=== PATIENT | female | born 1940 | race Caucasian/White ===

== ENCOUNTER 2016-04-03 | Outpatient (CLI) | payer MEDICARE, OTHER | END 2016-04-03 15:27 | disposition critical access hospital (66) | CPT/HCPCS: A0425; A0429 ==

== ENCOUNTER 2016-04-03 15:36 | Emergency (ER) | payer MEDICARE, OTHER ==
[2016-04-03] MEDS ORDERED: SODIUM CHLORIDE 0.9% 1,000 ML IV ONE (15:40)
[2016-04-03] MEDS ORDERED: ONDANSETRON 4 MG/2 ML VIAL IVP STA (15:40)
[2016-04-03] MEDS ORDERED: ONDANSETRON 4 MG/2 ML VIAL ONE (15:45)
== END 2016-04-03 19:13 | disposition home or self-care (01) ==
DX: F41.9 Anxiety disorder, unspecified (principal); R53.1 Weakness; D72.829 Elevated white blood cell count, unspecified; I45.10 Unspecified right bundle-branch block; E03.9 Hypothyroidism, unspecified

== ENCOUNTER 2016-04-07 11:59 | Outpatient (CLI) | payer MEDICARE, OTHER | END 2016-04-07 12:00 | disposition home or self-care (01) | DX: E83.119 Hemochromatosis, unspecified (principal) ==

== ENCOUNTER 2016-11-11 08:37 | Outpatient (CLI) | payer MEDICARE, OTHER ==
--- NOTE | 2016-11-11 10:06 | Ultrasound Report ---
LIVER ULTRASOUND: 11/11/2016 CLINICAL INDICATION: Hemachromatosis. TECHNIQUE: Real-time scanning was performed with clearance representative static images obtained. FINDINGS: The liver measures 13.5 cm. Hepatic echotexture is normal. No intrahepatic biliary dilat ation or focal parenchymal lesion is present. The common bile duct measures 2 mm. The gallbladder d emonstrates two tiny polyps or foci of adherent tumefactive sludge, the larger measuring 2 mm, and th e smaller measuring 1 mm. No cholelithiasis, wall thickening, or pericholecystic fluid is present. IMPRESSION: NORMAL APPEARANCE OF THE LIVER. TINY GALLBLADDER WALL POLYPS OR FOCI OF ADHERENT TUMEFA CTIVE SLUDGE. NO EVIDENCE OF CHOLELITHIASIS OR BILIARY OBSTRUCTION. JOB #: [id number] EXT JOB #:[id number]
== END 2016-11-11 08:38 | disposition home or self-care (01) ==
LOC: DI 08:37
PROVIDERS: ATTEND Internal Medicine
DX: E83.119 Hemochromatosis, unspecified (principal)
CPT/HCPCS: 76705

== ENCOUNTER 2018-03-10 09:24 | Outpatient (CLI) | payer MEDICARE, OTHER | END 2018-03-10 09:25 | disposition home or self-care (01) | LOC: LAB 09:24 | PROVIDERS: ATTEND Internal Medicine | DX: E83.119 Hemochromatosis, unspecified (principal) | CPT/HCPCS: 36415; 82728 ==

== ENCOUNTER 2021-10-11 15:20 | Outpatient (CLI) | payer MEDICARE, OTHER | END 2021-10-11 15:21 | disposition critical access hospital (66) | LOC: EMS 15:20 | DX: T14.90XA Injury, unspecified, initial encounter (principal); W01.0XXA Fall on same level from slipping, tripping and stumbling without subsequent striking against object, initial encounter; Y93.01 Activity, walking, marching and hiking; Y92.008 Other place in unspecified non-institutional (private) residence as the place of occurrence of the external cause | CPT/HCPCS: A0425; A0429 ==

== ENCOUNTER 2021-10-11 15:31 | Emergency (ER) | payer MEDICARE, OTHER ==
[2021-10-11] MEDS ORDERED: SODIUM CHLORIDE 0.9% 1,000 ML IV STA (15:59)
[2021-10-11] MEDS ORDERED: HYDROmorphone 1 MG/ML CARPUJECT IVP STA (15:59)
--- NOTE | 2021-10-11 16:03 | ED Physician Documentation ---
History of Present Illness - Stated complaint Stated Complaint: GLF - Chief complaint Chief Complaint: Trauma Ext - Additonal information Additional information: 81-year-old female presents emergency department for evaluation of injuries aft er a fall. She was descending some steps and fell forward onto her left side. She had difficulty getting up but once EMS was summoned she was able to walk to the [facility]. She presents with significant pain on her left thigh as well as ecchymosis. She has pain with palpation of her sternum she also has significant bruising on the left side of her face. She is not anticoagulated and did not lose consciousness. Review of Systems Constitutional: denies: Fever, Chills Cardiac: reports: Reviewed and negative Respiratory: denies: Dyspnea, Cough GI: denies: Abdominal Pain : reports: Reviewed and negative Skin: reports: Abrasion (s) Musculoskeletal: denies: Back pain Neurologic: reports: Generalized weakness PD PAST MEDICAL HISTORY - Past Medical History Cardiovascular: Arrhythmia Endocrine/Autoimmune: HyPOthyroidism Psych: Anxiety - Past Surgical History HEENT: Tonsil/Adenoidectomy - Present Medications Home Medications: Ambulatory Orders Medication Instructions Recorded Confirmed Levothyroxine Sodium [Synthroid] 75 mcg PO DAILY 07/18/12 10/11/21 - Allergies Allergies/Adverse Reactions: Allergies Allergy/AdvReac Type Severity Reaction Status Date / Time lidocaine Allergy Intermediate Anxiety Verified 10/11/21 15:56 bacitracin AdvReac Intermediate Rash Verified 10/11/21 15:56 [From Neosporin ([id number])] bacitracin zinc * AdvReac Intermediate Rash Verified 10/11/21 15:56 [From Neosporin ([id number])] neomycin sulfate * AdvReac Intermediate Rash Verified 10/11/21 15:56 [From Neosporin ([id number])] polymyxin B AdvReac Intermediate Rash Verified 10/11/21 15:56 [From Neosporin ([id number])] cephalexin [Cephalexin] AdvReac Unknown Anxiety Verified 10/11/21 15:56 Sulfa (Sulfonamide AdvReac Unknown Nausea Verified 10/11/21 15:56 Antibiotics) - Social History Does the pt smoke?: No Smoking Status: Never smoker PD ED PE EXPANDED - General General: Alert, No acute distress - HEENT HEENT: Pharynx normal, Other (Bruising on the left side of the face and at the angle of the left mandible. No trismus. No malocclusion. No intraoral bleeding noted. Normal phonation.) - Neck Neck: Supple w/out meningeal sx. No: Adenopathy, Bony TTP, Limited ROM - Cardiac Cardiac: Regular Rate, Radial strong equal, Pedal strong equal, Cap refill < 2 sec, Chest wall TTP (Significant tenderness to palpation of the sternum with even mild pressure. No deformity crepitus or ecchymosis noted). No: Murmur Present - Respiratory Respiratory: Clear to ausultation duy. No: Distress, Labored - Abdomen Abdomen: Normal Bowel sounds. No: Tender to palpation - Back Back: No: Vertebral tenderness (No step-off crepitus or deformity with palpation of the cervical thoracic or lumbar spine) - Derm Derm: Bruising (Significant bruising of the left side of the face right forearm left thigh) - Extremities Extremities: Left thigh (Patient is able to bend and extend left leg at hip and knee. Reportedly was able to bear weight. She has a large bruise of the left medial thigh which is quite tender to touch) - Neuro Neuro: Alert and Oriented X 3, CNII-XII intact - GCS Eye Opening: Spontaneous Motor: Obeys Commands Verbal: Oriented Total: 15 Results - Vitals Vitals: Vital Signs - 24 hr 10/11/21 10/11/21 15:37 17:21 Temperature 36.6 C Heart Rate 80 81 Respiratory 16 18 Rate Blood Pressure 139/85 H 171/82 H O2 Saturation 99 98 Oxygen O2 Source Room air - Labs Labs: Laboratory Tests 10/11/21 10/11/21 10/11/21 16:40 16:40 16:40 WBC 6.8 RBC 3.81 L Hgb 12.1 Hct 37.3 MCV 97.9 MCH 31.8 H MCHC 32.4 RDW 12.3 Plt Count 161 MPV 10.9 H Neut # (Auto) 5.2 Lymph # (Auto) 0.9 L [place] # (Auto) 0.7 Eos # (Auto) 0.1 Baso # (Auto) 0.0 Absolute Nucleated RBC 0.00 Nucleated RBC % 0.0 PT 10.0 INR 0.9 Sodium 137 Potassium 3.9 Chloride 103 Carbon Dioxide 29 Anion Gap 5.0 L BUN 21 H Creatinine 0.7 Estimated GFR (MDRD) 81 L Glucose 104 H Calcium 9.1 - Rads (name of study) CT chest Radiology: Final report received (No visualized sternal or rib fractures. No vertebral body compression fractures. No pneumothorax. No acute airspace opacities) cervical ct Radiology: Final report received (No acute traumatic fractures) ct head Radiology: Final report received (No acute intracranial process. Moderate atrophy and chronic microvascular ischemic changes) ct max fac Radiology: Final report received (No visualized fractures. Left facial soft tissue edema with small hematoma) left femur/left hip and pelvis Radiology: Final report received (No visualized fracture or dislocation) PD MEDICAL DECISION MAKING - ED course Complexity details: reviewed results, re-evaluated patient, considered differential, d/w patient ED course: 81-year-old female presents emergency department for evaluation of left-sided facial trauma, sternal pain and left thigh pain after she fell down 1 stair onto her left side. She did not lose consciousness and had difficulty getting up. However when she was attended to by EMS she was able to stand up and walk to the [facility]. On presentation she has a moderate amount of ecchymosis and swelling to the left side of her jaw. No trismus. She was also exquisitely tender with even light palpation of the sternum and anterior chest. She has a very large hematoma of the left thigh. No pain was elicited with palpation of the cervical thoracic or lumbar spine. She has full range of motion of both hips without any pain elicited. We We did do extensive imaging of the head neck chest and femur without findings of acute fracture. Patient declined IV or narcotic analgesics. She was given ibuprofen per her request here in the ER. After repeat evaluation she was able to ambulate with minimal assistance with the ED staff. At this time patient is stable for discharge home. She has declined a prescription for analgesia. She is advised to use Tylenol or limited amount of ibuprofen [id number] for discomfort. Emergent return precautions were discussed. Departure - Departure Disposition: 01 Home, Self Care Clinical Impression: Chest wall pain Fall Qualifiers: Encounter type: initial encounter Qualified Code(s): W19.XXXA - Unspecified fall, initial encounter Hematoma of left thigh Qualifiers: Encounter type: initial encounter Qualified Code(s): S70.12XA - Contusion of left thigh, initial encounter Abrasion of right forearm Qualifiers: Encounter type: initial encounter Qualified Code(s): S50.811A - Abrasion of right forearm, initial encounter Condition: Stable Record reviewed to determine appropriate education?: Yes Instructions: ED Hematoma, ED Contusion Chest Wall Comments: You are seen today in the emergency department After fall down some stairs. You do have a very large bruise on the left side of your face as well as your thigh and right forearm. You are very tender with even light palpation of your chest wall. We did do CT imaging of your head, neck, face and chest. We do not see any broken bones. The x-rays of your hip and pelvis And left femur are are also normal. I expect that you will be very sore over the next few days. I do recommend that you take 500 mg of Tylenol 2-3 times a day or alternate with ibuprofen 600 mg 2-3 times a day. In general you should be starting to feel better after about 72 hours. Continue to be as active and is mobile as possible. The hematoma on your left thigh will likely take 2 to 3 weeks to resolve. At any point you have worsening symptoms, difficulty breathing or develop fevers then please return to the ER for second evaluation
--- NOTE | 2021-10-11 16:39 | CT Report ---
PROCEDURE: HEAD WO INDICATIONS: glf TECHNIQUE: Noncontrast 4.5 mm thick angled axial sections acquired from the foramen magnum to the vertex. For r adiation dose reduction, the following was used: automated exposure control, adjustment of mA and/or kV according to patient size. COMPARISON: CT cervical spine and maxillofacial 422 FINDINGS: Image quality: Excellent. The ventricular system and cortical sulci demonstrate atrophy, consistent for patient's stated age. There are areas of hypodensity in the periventricular and subcortical white matter. There is no acut e intra or extra-axial fluid collection. No acute hemorrhage, mass lesion or midline shift. Brainst em is unremarkable. Globes are symmetrical. Sinuses are aerated. Osseous structures are intact. IMPRESSION: 1. No acute intracranial process. 2. Moderate atrophy and chronic microvascular ischemic changes. Reviewed by: Kiara Paredes MD on 10/11/2021 4:38 PM PDT Approved by: Kiara Paredes MD on 10/11/2021 4:38 PM PDT Station ID: [id number]
--- NOTE | 2021-10-11 16:41 | CT Report ---
PROCEDURE: CERVICAL SPINE WO INDICATIONS: glf TECHNIQUE: Noncontrast 3 mm thick sections acquired from the skull base to the T4 level. Sagittal and coronal r eformats were then constructed. For radiation dose reduction, the following was used: automated exp osure control, adjustment of mA and/or kV according to patient size. COMPARISON: CT brain and maxillofacial 10/11/2021 FINDINGS: Image quality: Excellent. Bones: No fractures or dislocations. Visualized superior ribs are intact. Multilevel degenerative changes are present. Soft tissues: Prevertebral soft tissues are normal in thickness. No paravertebral hematomas. No ap ical pneumothoraces. IMPRESSION: No visualized fracture. Reviewed by: Kiara Paredes MD on 10/11/2021 4:40 PM PDT Approved by: Kiara Paredes MD on 10/11/2021 4:40 PM PDT Station ID: [id number]
--- NOTE | 2021-10-11 16:42 | CT Report ---
PROCEDURE: MAXILLOFACIAL WO INDICATIONS: jaw swelling after fall TECHNIQUE: Noncontrast 1.5 mm thick axial images acquired from the mandible through the frontal sinuses, with co brigid and sagittal reformatting. For radiation dose reduction, the following was used: automated ex posure control, adjustment of mA and/or kV according to patient size. COMPARISON: CT brain and cervical spine 10/11/2021. FINDINGS: Image quality: Excellent. Bones and teeth: Orbital ji are intact. Sinus ji show no fracture or deformity. Nasal bones and septum are intact. Visualized portions of the mandible demonstrate no fractures or subluxation. Zygomatic arches are intact. Pterygoid plates are intact. Visualized portions of the skull base an d auditory canals are intact. Sinuses: Paranasal sinuses are aerated, without fluid levels, mucosal thickening, or mucoceles. Mas toid air cells are aerated. Soft tissues: Prominent left facial soft tissue edema is present. There is a soft tissue density zuleyka uring 2.8 x 1.4 cm, Hounsfield units measuring 54. Vascular: Visualized vascular structures appear normal in the absence of contrast. Bony vascular fo ramina and canals are intact. IMPRESSION: No visualized fracture. Left facial soft tissue edema with small hematoma. Reviewed by: Kiara Paredes MD on 10/11/2021 4:41 PM PDT Approved by: Kiara Paredes MD on 10/11/2021 4:41 PM PDT Station ID: [id number]
--- NOTE | 2021-10-11 16:45 | CT Report ---
PROCEDURE: CHEST WO INDICATIONS: sternal pain after fall TECHNIQUE: Noncontrast 1mm axial images were acquired from the pulmonary apices to the posterior costophrenic an gles. Axial 5 mm soft tissue kernel reconstructions were performed as well as 8 mm axial MIP and cor onal and sagittal 5 mm reformations. For radiation dose reduction, the following was used: automate d exposure control, adjustment of mA and/or kV according to patient size. COMPARISON: None FINDINGS: Image quality: Excellent. Lungs and pleura: No acute air space opacities. No pleural effusions or pneumothorax. Central and peripheral airways are patent and normal in caliber. Emphysematous changes are present within the paul ngs. Mediastinum: Heart size is enlarged. No pericardial effusion. No mediastinal adenopathy by size cri teria. Thoracic aorta and central pulmonary arteries are normal in size. Esophagus is normal in jessica iber. No hiatal hernia. Bones and chest wall: No suspicious bony lesions. No vertebral body compression fractures. No axil supriya or supraclavicular adenopathy by size criteria. The thyroid is normal in size and there are no incidental findings. Abdomen: Visualized upper abdominal solid organs and bowel loops appear normal in the absence of con trast. IMPRESSION: No visualized sternal fracture. CLINICAL RECOMMENDATION STATEMENTS: In patients <35 years with an ITN detected on CT, MRI, or extrathyroidal ultrasound, the Committee re commends further evaluation with dedicated thyroid ultrasound if the nodule is "e1 cm and has no susp icious imaging features, and if the patient has normal life expectancy. In patients "e35 years with an ITN detected on CT, MRI, or extrathyroidal ultrasound, the Committee r ecommends further evaluation with dedicated thyroid ultrasound if the nodule is "e1.5 cm and has no s uspicious imaging features, and if the patient has normal life expectancy. (ACR, 2014) Reviewed by: Kiara Paredes MD on 10/11/2021 4:44 PM PDT Approved by: Kiara Paredes MD on 10/11/2021 4:44 PM PDT Station ID: [id number]
[2021-10-11 16:46] LABS: BASOPHILS % (AUTO) 0.3 %; EOSINOPHILS # (AUTO) 0.1 10^3/uL (0.0-0.7); HCT - HEMATOCRIT 37.3 % (37.0-47.0); HGB - HEMOGLOBIN 12.1 g/dL (12.0-16.0); LYMPHOCYTES # (AUTO) 0.9 10^3/uL (1.5-3.5); LYMPHOCYTES % (AUTO) 12.5 %; MEAN CORPUSCULAR HEMOGLOBIN 31.8 pg (27.0-31.0); MEAN CORPUSCULAR HGB CONC 32.4 g/dL (32.0-36.0); MEAN CORPUSCULAR VOLUME 97.9 fL (81.0-99.0); MEAN PLATELET VOLUME 10.9 fL (7.9-10.8); MONOCYTES # (AUTO) 0.7 10^3/uL (0.0-1.0); NEUTROPHILS # (AUTO) 5.2 10^3/uL (1.5-6.6); NEUTROPHILS % (AUTO) 75.9 %; PLT - PLATELET COUNT 161 10^3/uL (130-450); RED BLOOD COUNT 3.81 10^6/uL (4.20-5.40); RED CELL DISTRIBUTION WIDTH 12.3 % (12.0-15.0); WHITE BLOOD COUNT 6.8 x10^3/uL (4.8-10.8)
--- NOTE | 2021-10-11 16:46 | XRAY Report ---
PROCEDURE: Femur 2V LT INDICATIONS: fall pain TECHNIQUE: 2 views of the femur were acquired. COMPARISON: None. FINDINGS: Bones: No fractures or dislocations. No suspicious bony lesions. Severe arthritic changes are pres ent within the knee. Chondrocalcinosis is also present. Soft tissues: No suspicious soft tissue calcifications or masses. IMPRESSION: No visualized acute fracture or dislocation. However, occult injury cannot be excluded. Recommend rodney rt interval imaging follow-up in 7-10 days as clinically indicated for additional evaluation. Reviewed by: Kiara Paredes MD on 10/11/2021 4:45 PM PDT Approved by: Kiara Paredes MD on 10/11/2021 4:45 PM PDT Station ID: [id number]
--- NOTE | 2021-10-11 16:47 | XRAY Report ---
PROCEDURE: Hip w/Pelvis 2-3V LT INDICATIONS: pain after fall TECHNIQUE: AP pelvis with lateral view(s) of the left hip(s). COMPARISON: None. FINDINGS: Bones: No fractures or dislocations. Pelvic ring appears intact. No suspicious bony lesions. Mode rate arthritic narrowing is present within the hips bilaterally. Soft tissues: The visualized bowel gas pattern is normal. No suspicious soft tissue calcifications. IMPRESSION: No visualized acute fracture or dislocation. However, occult injury cannot be excluded. Recommend short interval imaging follow-up in 7-10 days as clinically indicated for additional evalua tion. Reviewed by: Kiara Paredes MD on 10/11/2021 4:45 PM PDT Approved by: Kiara Paredes MD on 10/11/2021 4:45 PM PDT Station ID: [id number]
[2021-10-11 16:52] LABS: INR 0.9 (0.8-1.2)
[2021-10-11 16:55] LABS: CALCIUM 9.1 mg/dL (8.5-10.3); CREATININE 0.7 mg/dL (0.4-1.0); POTASSIUM 3.9 mmol/L (3.5-5.0)
[2021-10-11] MEDS ORDERED: IBUPROFEN 600 MG TABLET PO STA (16:55)
[2021-10-11 17:21] VITALS: BP 171/82
== END 2021-10-11 17:51 | disposition home or self-care (01) ==
LOC: EDUNIT# → ED 15:31
DX: R07.89 Other chest pain (principal); S70.12XA Contusion of left thigh, initial encounter; S50.811A Abrasion of right forearm, initial encounter; S00.83XA Contusion of other part of head, initial encounter; W10.9XXA Fall (on) (from) unspecified stairs and steps, initial encounter; Y93.89 Activity, other specified
CPT/HCPCS: 36415; 70450; 70486; 71250; 72125; 73502; 73552; 80048; 85025; 85610; 99282; 99284; A9270

== ENCOUNTER 2021-12-14 08:00 | Outpatient (CLI) | payer MEDICARE, OTHER ==
[2021-12-14 18:49] LABS: BASOPHILS % (AUTO) 0.7 %; EOSINOPHILS % (AUTO) 0.7 %; HCT - HEMATOCRIT 42.3 % (37.0-47.0); HGB - HEMOGLOBIN 13.4 g/dL (12.0-16.0); LYMPHOCYTES # (AUTO) 1.3 10^3/uL (1.5-3.5); LYMPHOCYTES % (AUTO) 21.8 %; MEAN CORPUSCULAR HEMOGLOBIN 30.2 pg (27.0-31.0); MEAN CORPUSCULAR HGB CONC 31.7 g/dL (32.0-36.0); MEAN CORPUSCULAR VOLUME 95.5 fL (81.0-99.0); MEAN PLATELET VOLUME 12.1 fL (7.9-10.8); MONOCYTES # (AUTO) 0.7 10^3/uL (0.0-1.0); MONOCYTES % (AUTO) 10.8 %; NEUTROPHILS % (AUTO) 65.8 %; PLT - PLATELET COUNT 193 10^3/uL (130-450); RED BLOOD COUNT 4.43 10^6/uL (4.20-5.40); RED CELL DISTRIBUTION WIDTH 13.5 % (12.0-15.0); WHITE BLOOD COUNT 6.1 x10^3/uL (4.8-10.8)
[2021-12-14 19:51] LABS: THYROID STIMULATING HORMONE 2.33 uIU/mL (0.34-5.60)
[2021-12-14 19:55] LABS: % IRON SATURATION 20 % (20-50); ALBUMIN 3.6 g/dL (3.2-5.5); ALBUMIN/GLOBULIN RATIO 0.9 (1.0-2.2); ALKALINE PHOSPHATASE 94 IU/L (42-121); ALT ALANINE AMINOTRANSFERASE 18 IU/L (10-60); AST ASPARTATE AMINOTRANSFERASE 77 IU/L (10-42); BILIRUBIN,TOTAL 0.8 mg/dL (0.2-1.0); BUN - BLOOD UREA NITROGEN 19 mg/dL (6-20); CALCIUM 9.2 mg/dL (8.5-10.3); CARBON DIOXIDE - CO2 27 mmol/L (21-32); CHLORIDE 102 mmol/L (101-111); CHOL/HDL RATIO 2.3 (<4.4); CHOLESTEROL 180 mg/dL; CREATININE 0.6 mg/dL (0.4-1.0); GFR - MDRD 96 (>89); GLUCOSE 90 mg/dL (70-100); HDL CHOLESTEROL 79 mg/dL; IRON 102 ug/dL (28-170); LDL CHOLESTEROL,CALCULATED 90 mg/dL; LDL/HDL RATIO 1.1 (<4.4); SODIUM 139 mmol/L (135-145); TOTAL IRON BINDING CAPACITY 510 ug/dL (250-450); TOTAL PROTEIN 7.7 g/dL (6.7-8.2); TRANSFERRIN 364 mg/dL (192-382); TRIGLYCERIDES 53 mg/dL; VLDL CHOLESTEROL 11 mg/dL
[2021-12-14 20:22] LABS: ESTIMATED AVERAGE GLUCOSE 128 mg/dL (70-100); HEMOGLOBIN A1c% 6.1 % (4.27-6.07)
== END 2021-12-14 23:59 | disposition home or self-care (01) ==
LOC: LAB.R 08:00
PROVIDERS: ATTEND Internal Medicine
DX: Z00.00 Encounter for general adult medical examination without abnormal findings (principal); F41.9 Anxiety disorder, unspecified; C44.91 Basal cell carcinoma of skin, unspecified; E83.110 Hereditary hemochromatosis; Z86.79 Personal history of other diseases of the circulatory system; E03.9 Hypothyroidism, unspecified; R73.01 Impaired fasting glucose; G47.00 Insomnia, unspecified; I83.90 Asymptomatic varicose veins of unspecified lower extremity
CPT/HCPCS: 80053; 80061; 82728; 83036; 83540; 83721; 84443; 84466; 85025

== ENCOUNTER 2022-01-01 09:22 | Outpatient (CLI) | payer MEDICARE, OTHER ==
--- NOTE | 2022-01-01 13:27 | Ultrasound Report ---
PROCEDURE: Abdomen Limited INDICATIONS: ELEVATED LIVER ENZYMES TECHNIQUE: Real-time scanning was performed of the right upper quadrant, with image documentation. COMPARISON: CT chest 10/11/2021. Abdominal ultrasound 11/11/2016. FINDINGS: Liver: Liver is normal in size and homogeneous in echotexture. Main portal vein demonstrates that a pedal flow. Diameter measuring 1.2 cm. Systolic velocity 23 cm/s. Phasicity is present. Gallbladder: Gallbladder is nondistended. No stones or sludge. No polyps seen. No gallbladder wall th ickening. No pericholecystic fluid. Negative sonographic Joseph sign. Biliary ducts: Intrahepatic bile ducts are non-dilated. Extrahepatic bile duct caliber measures 2 m m. Normal is 6-7 mm or less in diameter, or 10 mm or less post-cholecystectomy. Pancreas: Visualized portions of the pancreas are sonographically normal. Suboptimal visualization. Right kidney: Measures 9.2 cm. Cortex 0.6 cm. No hydronephrosis. IMPRESSION: 1. No acute cholecystitis. No gallstones. No polyp is identified. 2. Sonographic appearance of the liver is within normal limits. Reviewed by: Parminder Sauceda MD on 01/01/2022 1:25 PM PST Approved by: Parminder Sauceda MD on 01/01/2022 1:25 PM PST Station ID: [id number]
== END 2022-01-01 09:23 | disposition home or self-care (01) ==
LOC: DI 09:22
PROVIDERS: ATTEND Internal Medicine
DX: R74.8 Abnormal levels of other serum enzymes (principal)

== ENCOUNTER 2022-02-11 10:35 | Emergency (ER) | payer MEDICARE, OTHER ==
[2022-02-11] MEDS ORDERED: BUFFERED LIDOCAINE 10 ML SYRINGE SUBQ STA (10:51)
[2022-02-11 10:57] VITALS: BP 121/79
--- NOTE | 2022-02-11 12:23 | ED Physician Documentation ---
PD HPI LOWER EXT INJURY - Stated complaint Stated Complaint: RT LEG VEIN BLEEDING - Chief complaint Chief Complaint: Ext Problem - History obtained from History obtained from: Patient - History of Present Illness PD HPI LOW EXT INJURY LOCATION: Right (Spontaneously heavy bleeding right ankle varicose vein starting in the shower this morning that is stopped now.) PD PAST MEDICAL HISTORY - Past Medical History Cardiovascular: Arrhythmia Endocrine/Autoimmune: HyPOthyroidism Psych: Anxiety - Past Surgical History HEENT: Tonsil/Adenoidectomy - Present Medications Home Medications: Ambulatory Orders Medication Instructions Recorded Confirmed Levothyroxine Sodium [Synthroid] 75 mcg PO DAILY 07/18/12 10/11/21 - Allergies Allergies/Adverse Reactions: Allergies Allergy/AdvReac Type Severity Reaction Status Date / Time lidocaine Allergy Intermediate Anxiety Verified 02/11/22 10:58 bacitracin AdvReac Intermediate Rash Verified 02/11/22 10:58 [From Neosporin (hrr-prp-uznem)] bacitracin zinc * AdvReac Intermediate Rash Verified 02/11/22 10:58 [From Neosporin ([id number]-kbg-[id number])] neomycin sulfate * AdvReac Intermediate Rash Verified 02/11/22 10:58 [From Neosporin (jij-ipw-cvkas)] polymyxin B AdvReac Intermediate Rash Verified 02/11/22 10:58 [From Neosporin ([id number]-gzm-[id number])] cephalexin [Cephalexin] AdvReac Unknown Anxiety Verified 02/11/22 10:58 Sulfa (Sulfonamide AdvReac Unknown Nausea Verified 02/11/22 10:58 Antibiotics) - Social History Does the pt smoke?: No Smoking Status: Never smoker PD ED PE NORMAL - Vitals Vital signs reviewed: Yes - General General: Alert and oriented X 3, No acute distress - Derm Derm: Normal color, Warm and dry - Extremities Extremities: Other (Multiple varicosities, there is a varicose vein on the superomedial right ankle with a small ulcer over it and sequela of active bleeding.) - Neuro Neuro: Alert and oriented X 3, Normal speech Results - Vitals Vitals: Vital Signs - 24 hr 02/11/22 10:55 Temperature 36.1 C L Heart Rate 79 Respiratory 16 Rate Blood Pressure 121/79 O2 Saturation 98 Oxygen O2 Source Room air Procedures - Laceration (location) Right ankle varicose vein Length in cm: 0.4 Anesthesia: Lidocaine 1% (Note she has a lidocaine allergy. Given her reaction which is tachycardia presume it was epinephrine did it to her. She had no ill effects from buffered lidocaine.) Wound preparation: Chlorhexadine Skin layer closure: Nylon, Interrupted (A single 4-0 ahatep-lc-fytju suture), Size #-0 - enter number (4-0) Departure - Departure Disposition: Home, Self Care Clinical Impression: Bleeding from varicose vein Condition: Good Record reviewed to determine appropriate education?: Yes Instructions: ED Veins Varicose Comments: Come back for any signs of infection which would include: Redness, swelling, drainage, increased pain, or fevers. You can wash it soap and water. Keep it covered and moist with bacitracin ointment which is available over the counter; avoid neosporin. Follow-up with your physician in About 14 days for suture removal.
== END 2022-02-11 12:40 | disposition home or self-care (01) ==
LOC: ED 10:36
DX: I86.8 Varicose veins of other specified sites (principal)
CPT/HCPCS: 12001; 99281

== ENCOUNTER 2023-04-24 15:27 | Outpatient (CLI) | payer MEDICARE, OTHER ==
--- NOTE | 2023-04-25 22:56 | Ultrasound Report ---
PROCEDURE: Arterial Duplex Lwr Ext BL INDICATIONS: PAD TECHNIQUE: Color and pulse Doppler interrogation was performed of both lower extremity arterial systems, with im age documentation. COMPARISON: None FINDINGS: Right lower extremity: Common femoral artery: 122 cm/sec, with triphasic flow. Deep femoral artery: 58 cm/sec, with biphasic flow. Proximal superficial femoral artery: 108 cm/sec, with triphasic flow. Mid superficial femoral artery: 100 cm/sec, with triphasic flow. Distal superficial femoral artery: 95 cm/sec, with triphasic flow. Popliteal artery: 69 cm/sec, with biphasic flow. Posterior tibial artery: 119 cm/sec, with triphasic flow. Anterior tibial artery/dorsalis pedis: 116/104 cm/sec, with biphasic/biphasic flow. Wrad-scale imaging description: Mild scattered plaque. Left lower extremity: Common femoral artery: 168 cm/sec, with triphasic flow. Deep femoral artery: 48 cm/sec, with biphasic flow. Proximal superficial femoral artery: 115 cm/sec, with triphasic flow. Mid superficial femoral artery: 118 cm/sec, with triphasic flow. Distal superficial femoral artery: 89 cm/sec, with triphasic flow. Popliteal artery: 77 cm/sec, with triphasic flow. Posterior tibial artery: 107 cm/sec, with biphasic flow. Anterior tibial artery/dorsalis pedis: 113/90 cm/sec, with triphasic/triphasic flow. Ward-scale imaging description: Scattered atherosclerotic plaque. Left medial knee probable Hanson's cyst measuring 3.2 x 3.6 x 0.7 cm. IMPRESSION: Multiphasic waveforms in the bilateral lower extremity arterial vasculature with no velocity shift to suggest a hemodynamically significant stenosis. Reviewed by: Dulce Maria Ennis MD on 04/25/2023 10:55 PM PDT Approved by: Dulce Maria Ennsi MD on 04/25/2023 10:55 PM PDT Station ID: [id number]
== END 2023-04-24 15:28 | disposition home or self-care (01) ==
LOC: DI 15:27
PROVIDERS: ATTEND Podiatrist
DX: I73.9 Peripheral vascular disease, unspecified (principal)
CPT/HCPCS: 93925

== ENCOUNTER 2023-10-23 14:16 | Outpatient (CLI) | payer MEDICARE, OTHER | END 2023-10-23 23:59 | disposition EMS.NT | LOC: EMS 14:16 | DX: R58 Hemorrhage, not elsewhere classified (principal) ==

== ENCOUNTER 2023-10-24 12:15 | Outpatient (CLI) | payer MEDICARE, OTHER | END 2023-10-24 12:30 | disposition home or self-care (01) | LOC: LAB.N 12:15 | PROVIDERS: ATTEND Physician Assistant Medical | DX: L97.319 Non-pressure chronic ulcer of right ankle with unspecified severity (principal) | CPT/HCPCS: 87070; 87205 ==